=== PATIENT | female | born 1965 | race Caucasian/White ===

== ENCOUNTER 2016-10-07 18:03 | Emergency (ER) | payer MEDICAID ==
[~2016-10-07] VITALS: Ht 165.1 cm; Wt 65.0 kg
[~2016-10-07 18:03] MED LIST: ASPI-650 PO
[2016-10-07] MEDS ORDERED: DIPH,PERTUSS(ACELL),TET VAC/PF 0.5 ML IM-VACC ONE (18:30)
[2016-10-07] MEDS ORDERED: LIDOCAINE 1%-EPI 1:100K, 20ML SQ ONE (20:00)
== END 2016-10-07 20:10 | disposition left against medical advice (07) ==
LOC: ED 20:04
DX: S01.91XA Laceration without foreign body of unspecified part of head, initial encounter (principal); Y00.XXXA Assault by blunt object, initial encounter; Y93.89 Activity, other specified; Y92.89 Other specified places as the place of occurrence of the external cause; Y99.9 Unspecified external cause status
CPT/HCPCS: 99284

== ENCOUNTER 2017-03-06 01:31 | Emergency (ER) | payer MEDICAID ==
[~2017-03-06] VITALS: Ht 167.6 cm; Wt 63.6 kg
[2017-03-06 01:33] VITALS: BP 118/78
[2017-03-06] MEDS ORDERED: ONDANSETRON ODT 4 MG ONE (02:20)
[2017-03-06] MEDS ORDERED: ONDANSETRON ODT 4 MG PO ONE (02:30)
== END 2017-03-06 02:59 | disposition home or self-care (01) ==
LOC: ED 02:55
DX: K02.9 Dental caries, unspecified (principal); K08.89 Other specified disorders of teeth and supporting structures
CPT/HCPCS: 99283; Q0162

== ENCOUNTER 2019-01-23 20:38 | Emergency (ER) | payer MEDICAID ==
--- NOTE | 2019-01-23 20:43 | NUR ---
CALL X 1, NO ANSWER. REPORT RECEIVED FROM [facility]
--- NOTE | 2019-01-23 20:51 | NUR ---
CALL X 2, LOBBY BR CHECKED WELL.
--- NOTE | 2019-01-23 21:00 | NUR ---
NO ANSWER X 3.
--- NOTE | 2019-01-23 21:09 | NUR ---
NO ANSWER X3 PER TRIAGE NOTE
== END 2019-01-23 21:12 | disposition home or self-care (01) ==
LOC: ED 21:05
DX: M79.642 Pain in left hand (principal); Z53.21 Procedure and treatment not carried out due to patient leaving prior to being seen by health care provider